=== PATIENT | female | born 1935 | race Caucasian/White ===

== ENCOUNTER 2017-09-30 18:41 | Outpatient (REF) | payer MEDICARE, SELFPAY ==
[2017-09-30 20:39] LABS: Anion Gap 8.2 mmol/L (3-11); BUN 26 mg/dL (7-18); CO2 30.8 mmol/L (21.0-32.0); CREATININE 1.17 mg/dL (0.55-1.02); Calcium 9.3 mg/dL (8.5-10.1); Chloride 104 mmol/L (98-107); Cholesterol 208 mg/dL (50-200); Estimated GFR 44.51 (mL/min/1.73m2); Glucose 114 mg/dL (70-100); HDL Cholesterol 67 mg/dL (40-60); LDL CHOLESTEROL 124 mg/dL (<100); Potassium 4.5 mmol/L (3.5-5.1); Sodium 143 mmol/L (136-145); TSH 2.91 uIU/mL (0.358-3.74); Triglyceride 73 mg/dL (30-150)
[2017-09-30 20:40] LABS: Microalb ug/mg Crea 21.1 ug/mg Cr
[2017-09-30 20:41] LABS: COMMENT (LAB VIEW ONLY) 124.45 mg/dL
== END 2017-09-30 18:42 ==
LOC: LBN 18:41
PROVIDERS: PCP Internal Medicine; Visit Provider Internal Medicine
DX: E11.9 Type 2 diabetes mellitus without complications (principal); E78.00 Pure hypercholesterolemia, unspecified; I10 Essential (primary) hypertension; E03.9 Hypothyroidism, unspecified
CPT/HCPCS: 80048; 80061; 83721; 82043; 82570; 84443